=== PATIENT | female | born 1985 | race Caucasian/White ===

== ENCOUNTER 2016-08-17 15:45 | Emergency (ER) | payer MEDICAID ==
[~2016-08-17] VITALS: Ht 152.4 cm; Wt 54.4 kg
[2016-08-17 17:29] VITALS: BP 121/76
--- NOTE | 2016-08-17 19:47 | NUR ---
PT TAKEN TO BED 3
--- NOTE | 2016-08-17 19:50 | NUR ---
31 Y/O HERE C/O ABDOMINAL PAIN X TODAY. PT STATES SHE IS 10 WEEKS , LMP 06/04/16, . PT DENIES ANY VAGINAL BLEEDING, OR DISCHARGE. PT STATES SHE WAS TOLD TODAY AT HER DR OFFICE THERE WAS NOT HEART BEAT FOUND AND HAS A SCHEDULE APPT FOR D AND C NEXT WK. ER MD NOTIFIED.
[2016-08-17] MEDS ORDERED: ACETAMINOPHEN/CODEINE 300/30MG 1 TAB PO ONE (20:45)
[2016-08-17 22:54] VITALS: BP 110/78
--- NOTE | 2016-08-17 22:54 | NUR ---
Patient discharged BY CHARGE NURSE MOE ORTIZ, with v/s stable. Written and verbal after care instructions given and explained. Patient verbalized understanding. Ambulatory with steady gait. All questions addressed prior to discharge. Advised to follow up with PMD TOMORROW OR RETURN TO ER IF SEVERE BLEEDING OR FEVER TAKES PLACE.
== END 2016-08-17 22:54 | disposition home or self-care (01) ==
LOC: MED 15:45
DX: O36.4XX0 Maternal care for intrauterine death, not applicable or unspecified (principal); O26.891 Other specified pregnancy related conditions, first trimester; K80.50 Calculus of bile duct without cholangitis or cholecystitis without obstruction; Z3A.10 10 weeks gestation of pregnancy

== ENCOUNTER 2017-03-12 07:37 | Emergency (ER) | payer MEDICAID ==
[~2017-03-12] VITALS: Ht 158.8 cm; Wt 54.1 kg
[2017-03-12 07:40] VITALS: BP 109/67
--- NOTE | 2017-03-12 07:48 | NUR ---
Patient ambulated to bed 5. RN evaluating patient at bedside.
--- NOTE | 2017-03-12 07:51 | NUR ---
Dr. Dutta evaluating patient at bedside.
[2017-03-12] MEDS ORDERED: ONDANSETRON 4 MG ODT PO ONE (07:55)
[2017-03-12] MEDS ORDERED: IBUPROFEN 800 MG TAB PO ONE (07:55)
--- NOTE | 2017-03-12 07:56 | NUR ---
31/F bib with complaints of fever since Sunday accompanied by N/V, headache and right sided abdominal pain. Describes pain as sharp, non radiating, worse with eating, 04/24. Pt states she took Tylenol last night for fever and headache with no improvement of headache. No vomiting noted at this time. AOX4, faroese speaking. Skin warm and dry. Abdomen soft, non tender, active bowel sounds x 4 quadrants. Denies diarrhea or constipation. Denies painful urination or burning with urination. Pt assisted into a gown, placed on monitoring manager, pulse oximetry and blood pressure monitoring. VSS. at bedside. Bed placed in lowest position, side rails up. Placed in position of comfort, all needs addressed, warm blanket provided.
--- NOTE | 2017-03-12 08:06 | NUR ---
Lab at bedside for blood draw.
[2017-03-12 08:19] LABS: BASOPHILS % (AUTO) 0.7 % (0.0-2.0); EOSINOPHILS # (AUTO) 0.1 K/uL (0-0.4); EOSINOPHILS % (AUTO) 1.2 % (0.0-4.0); HEMATOCRIT 33.3 % (36-48); HEMOGLOBIN 10.9 g/dL (12.0-16.0); LYMPHOCYTES # (AUTO) 0.9 K/uL (2.5-16.5); LYMPHOCYTES % (AUTO) 13.9 % (20.5-51.1); MEAN CORPUSCULAR HEMOGLOBIN 26 pg (27-31); MEAN CORPUSCULAR HGB CONC 33 g/dL (33-37); MEAN CORPUSCULAR VOLUME 80 fL (80-94); MONOCYTES # (AUTO) 0.7 K/uL (0.8-1.0); MONOCYTES % (AUTO) 10.3 % (1.7-9.3); NEUTROPHILS # (AUTO) 4.7 K/uL (1.8-7.7); NEUTROPHILS % (AUTO) 73.9 % (42.2-75.2); PLATELET COUNT (AUTO) 204 K/uL (140-450); RED BLOOD CELL COUNT(AUTO) 4.18 MIL/uL (4.20-5.40); RED CELL DISTRIBUTION WIDTH 14.6 % (11.6-13.7); WHITE BLOOD COUNT (AUTO) 6.4 K/uL (4.8-10.8)
[2017-03-12 08:28] LABS: APPEARANCE,URINE HAZY (CLEAR); BILIRUBIN,URINE 1+ (NEGATIVE); BLOOD, URINE 1+ (NEGATIVE); COLOR,URINE YELLOW (YELLOW); LEUKOCYTE ESTERASE ,URINE TRACE (NEGATIVE); NITRITE, URINE NEGATIVE (NEGATIVE); PH,URINE 6.5 (5.0-9.0); UGLUCOSE NEGATIVE (NEGATIVE)
[2017-03-12 08:32] LABS: ANION GAP 13.4 (8-16); CARBON DIOXIDE 25.2 mmol/L (21-32); CREATININE 0.7 mg/dL (0.6-1.3); POTASSIUM 3.6 mmol/L (3.5-5.1)
[2017-03-12 08:38] LABS: ALBUMIN 3.4 g/dL (3.4-5.0); TOTAL BILIRUBIN 0.4 mg/dL (0.0-1.0)
--- NOTE | 2017-03-12 08:42 | NUR ---
Ultrasound at bedside.
[2017-03-12 08:51] LABS: RBC,URINE 0-5 (RARE) /HPF (0-5)
--- NOTE | 2017-03-12 09:21 | NUR ---
Patient resting comfortably in bed. VSS.
--- NOTE | 2017-03-12 09:29 | NUR ---
Dr. Dutta re-evaluating patient at bedside.
[2017-03-12 09:38] VITALS: BP 106/68
--- NOTE | 2017-03-12 09:38 | NUR ---
Chart checked and completed. The patient's care was reviewed and supervised by Kali Kovacs RN.
--- NOTE | 2017-03-12 09:38 | NUR ---
Patient discharged with v/s stable. Written and verbal after care instructions given and explained. Patient verbalized understanding. Ambulatory with steady gait. All questions addressed prior to discharge. Advised to follow up with PMD.
== END 2017-03-12 09:38 | disposition home or self-care (01) ==
LOC: MED 07:37
DX: R10.13 Epigastric pain (principal); R06.02 Shortness of breath; R11.2 Nausea with vomiting, unspecified; G43.909 Migraine, unspecified, not intractable, without status migrainosus; R50.9 Fever, unspecified
CPT/HCPCS: 36415; 71020; 76705; 80053; 81001; 81025; 83690; 85025; 99285; Q0092; S0119

== ENCOUNTER 2022-07-11 07:57 | Emergency (ER) | payer MEDICAID ==
[~2022-07-11] VITALS: Ht 165.1 cm; Wt 54.4 kg
[2022-07-11 08:01] VITALS: BP 121/77
--- NOTE | 2022-07-11 08:02 | NUR ---
pt placed in bed 04 by amr
[2022-07-11] MEDS ORDERED: ACETAMINOPHEN 325 MG TAB PO ONE (08:10)
--- NOTE | 2022-07-11 08:11 | NUR ---
called [facility], spoke with mela, states report was already made at scene. no action needed on our end at this time.
--- NOTE | 2022-07-11 08:20 | NUR ---
Pt taken to CT via [facility].
--- NOTE | 2022-07-11 08:23 | NUR ---
Pt returned from CT
[2022-07-11] MEDS ORDERED: IBUP-2213 PO (09:32)
[2022-07-11 10:01] VITALS: BP 111/74
== END 2022-07-11 10:00 | disposition home or self-care (01) ==
LOC: MED 07:57
DX: S00.90XA Unspecified superficial injury of unspecified part of head, initial encounter (principal); R11.0 Nausea; I10 Essential (primary) hypertension; Z79.899 Other long term (current) drug therapy; W22.8XXA Striking against or struck by other objects, initial encounter; Y93.89 Activity, other specified; Y92.89 Other specified places as the place of occurrence of the external cause; Y99.8 Other external cause status
CPT/HCPCS: 70450; 99284